=== PATIENT | male | born 1995 | race Caucasian/White ===

== ENCOUNTER 2019-08-01 16:44 | Emergency (ER) | payer BC, OTHER ==
[2019-08-01] MEDS ORDERED: Fluorescein Sodium TOPICAL* 1 MG TEST STRIP OPHTHALMIC ONE (17:10)
[2019-08-01] MEDS ORDERED: Tetan/Diph/Pertus SYR(Tdap)* 0.5 ML SYR(BOOSTRIX) use SYR contains LATEX IM ONE (17:18)
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
[2019-08-01] MEDS ORDERED: Tetracaine 0.5% OPTH.SOL 4 ML* 1 DROP BTL ONE (17:23)
[2019-08-01] MEDS ORDERED: Tetracaine 0.5% OPTH.SOL 4 ML* 1 DROP BTL LEFT EYE SCH (17:30)
[2019-08-01] MEDS ORDERED: Gentamicin 0.3% OPTH.OINT* 3.5 GM TUBE LEFT EYE ONE (18:50)
[2019-08-01 19:27] VITALS: BP 116/67
== END 2019-08-01 19:31 | disposition home or self-care (01) ==
LOC: ED 16:44
DX: S05.02XA Injury of conjunctiva and corneal abrasion without foreign body, left eye, initial encounter (principal); Z23 Encounter for immunization; Y04.2XXA Assault by strike against or bumped into by another person, initial encounter; Y92.89 Other specified places as the place of occurrence of the external cause; Y99.0 Civilian activity done for income or pay; F17.290 Nicotine dependence, other tobacco product, uncomplicated
CPT/HCPCS: 70486; 90471; 90715; 99282; A9270-GY